=== PATIENT | male | born 1995 | race Caucasian/White ===

== ENCOUNTER 2020-07-04 10:02 | Emergency (ER) | payer SELFPAY ==
[2020-07-04 10:16] VITALS: BP 133/80
[2020-07-04 10:36] LABS: ABSOLUTE LYMPHOCYTES (AUTO) 1.6 10^3/uL (0.5-4.7); ABSOLUTE MONOCYTES (AUTO) 0.3 10^3/uL (0.1-1.4); ABSOLUTE NEUT (AUTO) 9.3 10^3/uL (1.7-8.2); BASOPHILS % (AUTO) 0.3 % (0-2); EOSINOPHILS % (AUTO) 0.1 % (0-6); HEMATOCRIT 47.4 % (37.9-51.0); HEMOGLOBIN 15.9 g/dL (13.5-17.0); LYMPHOCYTES % (AUTO) 13.9 % (13-45); MEAN CORPUSCULAR HEMOGLOBIN 29.6 pg (27.0-33.4); MEAN CORPUSCULAR HGB CONC 33.6 g/dL (32.0-36.0); MEAN CORPUSCULAR VOLUME 88 fl (80-97); MONOCYTES % (AUTO) 2.7 % (3-13); PLATELET COUNT 435 10^3/uL (150-450); RED BLOOD COUNT 5.38 10^6/uL (4.35-5.55); RED CELL DISTRIBUTION WIDTH 12.4 % (11.5-14.0); TOTAL CELLS COUNTED % (AUTO) 100 %; WHITE BLOOD COUNT 11.2 10^3/uL (4.0-10.5)
[2020-07-04 10:55] LABS: ALBUMIN 5.1 g/dL (3.5-5.0); ALKALINE PHOSPHATASE 105 U/L (38-126); ANION GAP 17 (5-19); ASPARTATE AMINO TRANSFERASE 58 U/L (17-59); BILIRUBIN,DIRECT 0.2 mg/dL (0.0-0.4); BILIRUBIN,TOTAL 1.2 mg/dL (0.2-1.3); BLOOD UREA NITROGEN 15 mg/dL (7-20); CALCIUM 11.1 mg/dL (8.4-10.2); CARBON DIOXIDE 27 mmol/L (22-30); CHLORIDE 101 mmol/L (98-107); GLUCOSE 281 mg/dL (75-110); POTASSIUM 4.3 mmol/L (3.6-5.0); TOTAL PROTEIN 8.3 g/dL (6.3-8.2)
[2020-07-04 11:10] LABS: APPEARANCE,URINE CLEAR; BILIRUBIN,URINE NEGATIVE (NEGATIVE); COLOR,URINE YELLOW; GLUCOSE, URINE >=500 mg/dL (NEGATIVE); KETONES,URINE 80 mg/dL (NEGATIVE); LEUKOCYTE ESTERASE,URINE NEGATIVE (NEGATIVE); NITRITE,URINE NEGATIVE (NEGATIVE); PROTEIN,URINE 100 mg/dL (NEGATIVE); URINE SPECIFIC GRAVITY 1.035; UROBILINOGEN,URINE NEGATIVE mg/dL (<2.0)
[2020-07-04] MEDS ORDERED: NORMAL SALINE 1000 ML 1,000 ML IV ONE (11:28)
[2020-07-04] MEDS ORDERED: ONDANSETRON HCL INJ/PF 4 MG/2 ML SDV IV ONE (11:29)
[2020-07-04] MEDS ORDERED: INSULIN REG, HUMAN 100 UNIT/ML 3 ML VIAL (PYX) SUBCUT ONE (11:30)
--- NOTE | 2020-07-04 11:35 | ER Document Report ---
ED Medical Screen (RME) - General Chief Complaint: Nausea/Vomiting Stated Complaint: VOMITING Time Seen by Provider: 07/04/20 11:23 Notes: Patient presents complaining of nausea and vomiting. Patient states he is vomited 5 times today. Patient denies any diarrhea. Patient complains of generalized body aches. Patient reports shortness of breath although denies any cough. Patient denies any fever. Patient does have a history of diabetes. I have greeted and performed a rapid initial assessment of this patient. A comprehensive ED assessment and evaluation of the patient, analysis of test results and completion of the medical decision making process will be conducted by additional ED providers. - Related Data Allergies/Adverse Reactions: amoxicillin Allergy (Verified 07/04/20 10:28) Past Medical History - Social History Drug Abuse: Marijuana Endocrine Medical History: Reports: Hx Diabetes Mellitus Type 1 Physical Exam - Vital signs Vitals: Temp Pulse Resp BP Pulse Ox 97.4 F 55 L 16 133/80 H 98 07/04/20 10:14 07/04/20 10:14 07/04/20 10:14 07/04/20 10:14 07/04/20 10:14 - Respiratory Respiratory status: No respiratory distress Chest status: Nontender Breath sounds: Normal Chest palpation: Normal Course - Vital Signs Vital signs: Temp Pulse Resp BP Pulse Ox 97.4 F 55 L 16 133/80 H 98 07/04/20 10:14 07/04/20 10:14 07/04/20 10:14 07/04/20 10:14 07/04/20 10:14 - Laboratory Results Result Diagrams: 07/04/20 10:15 07/04/20 10:15 Laboratory Results Interpreted: 07/04/20 07/04/20 07/04/20 10:12 10:15 10:15 WBC 11.2 H [place] % (Auto) 2.7 L Absolute Neuts (auto) 9.3 H Seg Neutrophils % 83.0 H Sodium 145.2 H Glucose 281 H POC Glucose 248 H Calcium 11.1 H Total Protein 8.3 H Albumin 5.1 H Urine Protein Urine Glucose (UA) Urine Ketones 07/04/20 10:20 WBC [place] % (Auto) Absolute Neuts (auto) Seg Neutrophils % Sodium Glucose POC Glucose Calcium Total Protein Albumin Urine Protein 100 H Urine Glucose (UA) >=500 H Urine Ketones 80 H
[2020-07-04 12:18] LABS: VENOUS BLOOD BASE EXCESS -14.4 mmol/L; VENOUS BLOOD HCO3 9.3 mmol/L (20-32); VENOUS BLOOD PH 7.38 (7.30-7.42)
[2020-07-04 12:19] LABS: VENOUS BLOOD PCO2 16.2 mmHg (35-63)
--- NOTE | 2020-07-04 12:25 | RADIOLOGY REPORT (SQ) ---
EXAM DESCRIPTION: CHEST SINGLE VIEW IMAGES COMPLETED DATE/TIME: 07/04/2020 12:06 pm REASON FOR STUDY: sob COMPARISON: None. EXAM PARAMETERS: NUMBER OF VIEWS: One view. TECHNIQUE: Single frontal radiographic view of the chest acquired. RADIATION DOSE: NA LIMITATIONS: None. FINDINGS: LUNGS AND PLEURA: No opacities, masses or pneumothorax. No pleural effusion. MEDIASTINUM AND HILAR STRUCTURES: No masses. Contour normal. HEART AND VASCULAR STRUCTURES: Heart normal in size. Normal vasculature. BONES: No acute findings. HARDWARE: None in the chest. OTHER: No other significant finding. IMPRESSION: NO ACUTE RADIOGRAPHIC FINDING IN THE CHEST. TECHNICAL DOCUMENTATION: JOB ID: [id number] [id number] 2010 [employer]- All Rights Reserved Reading location - IP/workstation name: [employer]
[2020-07-04 12:34] LABS: A TYPE INFLUENZA AG NEGATIVE (NEGATIVE); B INFLUENZA AG NEGATIVE (NEGATIVE)
--- NOTE | 2020-07-04 13:56 | ER Document Report ---
ED General - General Chief Complaint: Nausea/Vomiting Stated Complaint: VOMITING Time Seen by Provider: 07/04/20 11:23 Primary Care Provider: [facility] [Provider Group] - Follow up in 3-5 [address] - [facility] Notes: 24-year-old male to the emergency department with complaints of nausea and vomiting with generalized abdominal pain that began this morning. He states that he has had about 5 episodes of forceful retching. He felt fairly weak. He states that he felt slightly short of breath when he has been vomiting. Of note he is a type I diabetic. He states that his sugars been running okay. Also of note, he is trying his insulin [id number] and monitoring his blood sugars discussed he can states he does not have insurance and cannot afford to see the doctor. He has never been in diabetic ketoacidosis. Denies any possible contact with anyone with COVID-19 - Related Data Allergies/Adverse Reactions: amoxicillin Allergy (Verified 07/04/20 10:28) Past Medical History - General Information source: Patient - Social History Smoking Status: Current Every Day Smoker Frequency of alcohol use: Occasional Drug Abuse: Marijuana Family History: Reviewed & Not Pertinent Endocrine Medical History: Reports: Hx Diabetes Mellitus Type 1 Review of Systems - Review of Systems Constitutional: Weakness. denies: Chills, Fever EENT: No symptoms reported Cardiovascular: denies: Chest pain, Palpitations, Dyspnea, Syncope, Dizziness Respiratory: Short of breath. denies: Cough, Hurts to breathe, Wheezing Gastrointestinal: Abdominal pain, Nausea, Vomiting. denies: Diarrhea Genitourinary: No symptoms reported Musculoskeletal: No symptoms reported Skin: No symptoms reported Hematologic/Lymphatic: No symptoms reported Neurological/Psychological: No symptoms reported -: Yes All other systems reviewed and negative Physical Exam - Vital signs Vitals: Temp Pulse Resp BP Pulse Ox 97.4 F 55 L 16 133/80 H 98 07/04/20 10:14 07/04/20 10:14 07/04/20 10:14 07/04/20 10:14 07/04/20 10:14 Interpretation: Normal - Notes Notes: PHYSICAL EXAMINATION: GENERAL: Well-appearing, well-nourished and in no acute distress. HEAD: Atraumatic, normocephalic. EYES: Pupils equal round and reactive to light, extraocular movements intact, sclera anicteric, conjunctiva are normal. ENT: nares patent, oropharynx clear without exudates. Moist mucous membranes. NECK: Normal range of motion, supple without lymphadenopathy LUNGS: Breath sounds clear to auscultation bilaterally and equal. No wheezes rales or rhonchi. HEART: Regular rate and rhythm without murmurs ABDOMEN: Soft, nontender, normoactive bowel sounds. No guarding, no rebound. No masses appreciated. No CVA tenderness EXTREMITIES: Normal range of motion, no pitting or edema. No cyanosis. NEUROLOGICAL: No focal neurological deficits. Moves all extremities spontaneously and on command. PSYCH: Normal mood, normal affect. SKIN: Warm, Dry, normal turgor, no rashes or lesions noted. Patient states he feels much better after receiving medicines from triage provider. Course - Re-evaluation Re-evalutation: Impression: Nausea vomiting, type 1 diabetes. Patient is much better after fluids, insulin, antiemetics. Blood sugar has decreased to the 120s. Initially he had a CO2 level on VBG that was low. It was reported to Dr. Sanchez. However, this lab work does not coincide with patient presentation. We will repeat the VBG as believe that this is likely a false value. I discussed this with Dr. Sanchez and he agrees. Noted repeat VBG. It is normal limits. Patient would like to be discharged home. I given him information for [facility] for his diabetes. He agrees with the plan. Encouraged to return if worsening. - Vital Signs Vital signs: Temp Pulse Resp BP Pulse Ox 98.1 F 85 18 133/80 H 99 07/04/20 14:20 07/04/20 14:20 07/04/20 14:20 07/04/20 14:20 07/04/20 14:20 - Laboratory Results Result Diagrams: 07/04/20 10:15 07/04/20 10:15 Laboratory Results Interpreted: 07/04/20 07/04/20 07/04/20 10:12 10:15 10:15 WBC 11.2 H [place] % (Auto) 2.7 L Absolute Neuts (auto) 9.3 H Seg Neutrophils % 83.0 H VBG pCO2 VBG HCO3 Sodium 145.2 H Glucose 281 H POC Glucose 248 H Calcium 11.1 H Total Protein 8.3 H Albumin 5.1 H Lipase Urine Protein Urine Glucose (UA) Urine Ketones 07/04/20 07/04/20 07/04/20 10:15 10:20 12:06 WBC [place] % (Auto) Absolute Neuts (auto) Seg Neutrophils % VBG pCO2 16.2 L* VBG HCO3 9.3 L Sodium Glucose POC Glucose Calcium Total Protein Albumin Lipase 17.8 L Urine Protein 100 H Urine Glucose (UA) >=500 H Urine Ketones 80 H 07/04/20 07/04/20 13:33 14:27 WBC [place] % (Auto) Absolute Neuts (auto) Seg Neutrophils % VBG pCO2 VBG HCO3 Sodium Glucose POC Glucose 148 H 127 H Calcium Total Protein Albumin Lipase Urine Protein Urine Glucose (UA) Urine Ketones Critical Laboratory Results Reviewed: Yes Attending or Supervising Physician who Reviewed Labs: SHAKA SANCHEZ JR - Radiology Results Critical Radiology Results Reviewed: No Critical Results Discharge - Discharge Clinical Impression: Hyperglycemia Nausea & vomiting Qualifiers: Vomiting type: unspecified Vomiting Intractability: non-intractable Qualified Code(s): R11.2 - Nausea with vomiting, unspecified Type 1 diabetes mellitus Qualifiers: Diabetes mellitus complication status: with hyperglycemia Qualified Code(s): E10.65 - Type 1 diabetes mellitus with hyperglycemia Condition: Stable Disposition: HOME, SELF-CARE Instructions: Vomiting ([facility]) Additional Instructions: Please follow-up with the [facility] for outpatient primary care follow-up. Please return if you have worsening symptoms. Take antiemetics as prescribed. Push fluids. Prescriptions: Ondansetron [Zofran Odt 4 mg Tablet] 1 - 2 tab PO Q4H PRN #15 tab.rapdis PRN Reason: For Nausea/Vomiting Referrals: [facility] [Provider Group] - Follow up in 3-5 days
[2020-07-04 14:20] LABS: VENOUS BLOOD BASE EXCESS -0.1 mmol/L; VENOUS BLOOD HCO3 24.1 mmol/L (20-32); VENOUS BLOOD PCO2 38.3 mmHg (35-63); VENOUS BLOOD PH 7.42 (7.30-7.42)
== END 2020-07-04 14:33 | disposition home or self-care (01) ==
LOC: ER 10:02
DX: R11.2 Nausea with vomiting, unspecified (principal); M79.10 Myalgia, unspecified site; E10.65 Type 1 diabetes mellitus with hyperglycemia; F17.200 Nicotine dependence, unspecified, uncomplicated
CPT/HCPCS: 99284; 96361; 96374; 36415; 82962; 82550; 83690; 85025; 80053; 81001; 82803; 87804; 71045; J1815; J2405; J7030